=== PATIENT | female | born 1990 | race Caucasian/White ===

== ENCOUNTER 2019-02-05 13:21 | Emergency (ER) | payer SELFPAY ==
[~2019-02-05] VITALS: Ht 172.7 cm; Wt 93.0 kg
[2019-02-05 13:43] VITALS: BP 120/84
[2019-02-05] MEDS ORDERED: KETOROLAC TROMETHAMINE INJ 30 MG/ML VIAL ONE (14:25)
[2019-02-05] MEDS ORDERED: KETOROLAC TROMETHAMINE INJ 60 MG/2 ML VIAL IM ONE (14:30)
== END 2019-02-05 15:39 | disposition home or self-care (01) ==
LOC: ER 13:28
DX: S16.1XXA Strain of muscle, fascia and tendon at neck level, initial encounter (principal); Z60.2 Problems related to living alone; V40.5XXA Car driver injured in collision with pedestrian or animal in traffic accident, initial encounter; Y93.89 Activity, other specified; Y92.413 State road as the place of occurrence of the external cause; Y99.8 Other external cause status
CPT/HCPCS: 84703; 96372; 99283; J1885

== ENCOUNTER 2019-11-29 13:21 | Emergency (ER) | payer OTHER ==
[~2019-11-29] VITALS: Ht 172.7 cm; Wt 72.6 kg
[2019-11-29] MEDS ORDERED: predniSONE 10 MG TABLET PO ONE (14:00)
[2019-11-29] MEDS ORDERED: diphenhydrAMINE HCL 50 MG CAPSULE PO ONE (14:00)
[2019-11-29] MEDS ORDERED: FAMOTIDINE (20 MG) 20 MG TABLET PO ONE (14:00)
--- NOTE | 2019-11-29 14:00 | NUR ---
patient caemin to the ER c/o rash on the torso, took benadryl not helping. On room air, breathing evenyl and unlabored. connected to the monitro and pulse ox. kept comfortable, will continue to monitor accordingly.
[2019-11-29] MEDS ORDERED: diphenhydrAMINE HCL 50 MG CAPSULE ONE (14:11)
[2019-11-29] MEDS ORDERED: predniSONE 20 MG TABLET ONE (14:12)
[2019-11-29] MEDS ORDERED: FAMOTIDINE (20 MG) 20 MG TABLET ONE (14:12)
--- NOTE | 2019-11-29 15:23 | NUR ---
Patient discharged to home in stable condition. Written and verbal after care instructions given. Patient verbalizes understanding of instruction.
[2019-11-29 15:24] VITALS: BP 145/71
== END 2019-11-29 15:25 | disposition home or self-care (01) ==
LOC: ER 13:21
DX: T78.40XA Allergy, unspecified, initial encounter (principal); Z60.2 Problems related to living alone; X58.XXXA Exposure to other specified factors, initial encounter
CPT/HCPCS: 99284; J7512; Q0163